=== PATIENT | female | born 1965 | race Caucasian/White ===

== ENCOUNTER 2017-09-24 17:43 | Emergency (ER) | payer MEDICAID ==
[~2017-09-24] VITALS: Ht 157.5 cm; Wt 75.4 kg
[2017-09-24 21:05] VITALS: BP 107/70
== END 2017-09-24 21:05 | disposition home or self-care (01) ==
LOC: ED 17:43
DX: M54.5 Low back pain (principal); R51 Headache; I10 Essential (primary) hypertension

== ENCOUNTER 2019-02-20 21:31 | Emergency (ER) | payer MEDICAID ==
[~2019-02-20] VITALS: Ht 152.4 cm; Wt 101.2 kg
[2019-02-20 22:56] VITALS: BP 138/71
== END 2019-02-20 22:56 | disposition home or self-care (01) ==
LOC: ED 21:31
DX: M54.5 Low back pain (principal); R07.89 Other chest pain; R05 Cough; J02.9 Acute pharyngitis, unspecified; I10 Essential (primary) hypertension; Z86.2 Personal history of diseases of the blood and blood-forming organs and certain disorders involving the immune mechanism; Z87.19 Personal history of other diseases of the digestive system; Z90.49 Acquired absence of other specified parts of digestive tract
CPT/HCPCS: J1885

== ENCOUNTER 2019-10-26 15:10 | Emergency (ER) | payer MEDICAID ==
[~2019-10-26] VITALS: Ht 167.6 cm; Wt 78.5 kg
[2019-10-26 15:24] VITALS: Ht 167.6 cm; Wt 78.5 kg
[2019-10-26 15:52] LABS: BASOPHIL % 0.2 % (0-2); PLATELET COUNT 365 x10^3mcL (130-400); RED CELL DISTRIBUTION WIDTH 13.5 % (11.5-14.5)
[2019-10-26 16:04] LABS: CARBON DIOXIDE 29.1 mmol/L (21-32); CHLORIDE SERUM 99 mmol/L (98-107); CREATININE SERUM 0.9 mg/dL (0.6-1.0); GFR1 > 60 mL/min; GLUCOSE SERUM 83 mg/dL (74-106); POTASSIUM SERUM 3.8 mmol/L (3.5-5.1); SODIUM SERUM 134 mmol/L (136-145)
[2019-10-26 16:09] LABS: ALBUMIN 3.8 g/dL (3.4-5.0); ALKALINE PHOSPHATASE 106 U/L (46-116); ALT/SGPT 46 U/L (14-59); AST/SGOT 25 U/L (15-37); BILIRUBIN TOTAL 0.3 mg/dL (0.20-1.00); LIPASE 173 IU/L (73-393); TOTAL PROTEIN, SERUM 7.7 g/dL (6.4-8.2)
[2019-10-26 16:37] LABS: microscopic required? NO
[2019-10-26 16:43] LABS: urine erythrocyte NEGATIVE (NEGATIVE)
[2019-10-26 18:39] VITALS: BP 135/74
== END 2019-10-26 18:39 | disposition home or self-care (01) ==
LOC: ED 15:10
PROVIDERS: Student in an Organized Health Care Education/Training Program
DX: D25.9 Leiomyoma of uterus, unspecified (principal); I10 Essential (primary) hypertension; Z90.49 Acquired absence of other specified parts of digestive tract; Z98.890 Other specified postprocedural states
CPT/HCPCS: 36415; J1885